=== PATIENT | male | born 1990 | race Caucasian/White ===

== ENCOUNTER 2023-12-08 14:23 | Observation (INO) | payer BC ==
[2023-12-08 14:51] LABS: #Basophils 0.05 10x3/uL (0.0-0.2); %Basophils 0.7 % (0.0-1.0); %Eosinophils 4.3 % (0.0-10.0); %Monocytes 7.4 % (0.0-10.0); %Neutrophils 53.3 % (42.0-75.0); Hematocrit 45.6 % (42.0-52.0); Hemoglobin 16.4 g/dL (14.0-18.0); Mean Corpuscular Hemoglobin 29.5 pg (27.0-31.0); Mean Platelet Volume 9.7 fL (7.4-10.4); Platelet Count 269 10x3/uL (130-400); RBC Distribution Width 12.7 % (11.5-14.5); Red Blood Cell (RBC) Count 5.56 mill/uL (4.70-6.10)
[2023-12-08 15:15] LABS: ALT (SGPT) 65 U/L (8-55); AST (SGOT) 35 U/L (5-34); Albumin 4.5 g/dL (3.5-5.0); Alkaline Phosphatase 72 U/L (40-110); Anion Gap 16 mmol/L (10-20); BUN (Urea Nitrogen) 16 mg/dL (8.9-20.6); Bilirubin, Total 0.5 mg/dL (0.2-1.2); Calc. Creatinine Clearance 0 mL/min (70-130); Calcium 10.2 mg/dL (7.8-10.44); Carbon Dioxide 23 mmol/L (22-29); Chloride 104 mmol/L (98-107); Estimated GFR 82; Globulin 3.7 g/dL (2.4-3.5); Glucose 103 mg/dL (70-105); Magnesium 2.5 mg/dL (1.6-2.6); Potassium 3.9 mmol/L (3.5-5.1); Protein, Total 8.2 g/dL (6.0-8.3); Sodium 139 mmol/L (136-145)
[2023-12-08 15:17] LABS: Troponin I Less than 0.010 ng/mL (< 0.028)
[2023-12-08] MEDS ORDERED: Ondansetron ODT 4 MG TAB PO PRN (15:45)
[2023-12-08] MEDS ORDERED: Acetaminophen/Codeine 30-300mg Tablet PO PRN (15:45)
[2023-12-08] MEDS ORDERED: Aspirin Chewable 81 MG TAB ONE (15:46)
[2023-12-08 16:57] VITALS: BMI 31.1
[2023-12-08] MEDS: Sodium Chloride 0.9% 1,000 ML IV SCH (17:10)
[2023-12-08] MEDS: Acetaminophen 325 MG TAB PO SCH (17:10)
[2023-12-08 18:36] LABS: Troponin I Less than 0.010 ng/mL (< 0.028)
[2023-12-08 21:03] LABS: Troponin I Less than 0.010 ng/mL (< 0.028)
[2023-12-09] MEDS ORDERED: Heparin 10,000 UNITS/ 10 ML VIAL ONE (06:10)
[2023-12-09] MEDS ORDERED: Midazolam HCl 2 mg/2 ml Vial ONE (06:10)
[2023-12-09] MEDS ORDERED: fentaNYL 50 mcg/mL 1 mL Vial ONE (06:10)
[2023-12-09] MEDS ORDERED: Lidocaine 1% (PF) 30 ML VIAL ONE (06:11)
[2023-12-09] MEDS ORDERED: Nitroglycerin 50 MG/250 ML BOT 0 ML ONE (06:11)
[2023-12-09] MEDS: Enoxaparin 30 MG (0.3 mL) SYRINGE SC SCH (08:51)
[2023-12-09] MEDS ORDERED: Acetaminophen/Codeine 30-300mg Tablet PO PRN ×2 (09:22)
[2023-12-09] MEDS ORDERED: Nitroglycerin 0.4 MG TAB (25 Tab Bottle) SL PRN (09:22)
[2023-12-09] MEDS ORDERED: Sodium Chloride 0.9% 200 ML IV PRN (09:22)
[2023-12-09] MEDS: Metoprolol Tartrate 25 MG TAB PO SCH (14:59)
[2023-12-09 16:27] VITALS: BP 164/71; TEMP 98.5
[2023-12-09] MEDS ORDERED: Metoprolol Tartrate 25 MG TAB PO SCH (21:00)
== END 2023-12-09 17:10 | disposition home or self-care (01) ==
LOC: ERS 14:23 → 2SW 16:41
PROVIDERS: ADMIT Internal Medicine; ATTEND Internal Medicine
DX: R07.89 Other chest pain (principal); E78.5 Hyperlipidemia, unspecified; F32.A Depression, unspecified; I47.20 Ventricular tachycardia, unspecified; R79.89 Other specified abnormal findings of blood chemistry; F41.9 Anxiety disorder, unspecified; R03.0 Elevated blood-pressure reading, without diagnosis of hypertension; R74.01 Elevation of levels of liver transaminase levels; Z79.899 Other long term (current) drug therapy
CPT/HCPCS: 36415; 80053; 83735; 83880; 84484; 85025; 93005; 93306; 93458; 96372; 99152; C1769; G0378; J1644; J1650; J2001; J2250; J3010; J7050